=== PATIENT | male | born 2000 | race African-American/Black ===

== ENCOUNTER 2023-07-09 08:42 | Emergency (ER) | payer OTHER ==
[2023-07-09 09:01] VITALS: O2SAT 98
--- NOTE | 2023-07-09 09:32 | XRAY Report ---
PROCEDURE: Tib/Fib RT INDICATIONS: Rt leg pain TECHNIQUE: 2 views of the tibia and fibula were acquired. COMPARISON: None. FINDINGS: Bones: No fractures or dislocations. No suspicious bony lesions. Soft tissues: No suspicious soft tissue calcifications or masses. IMPRESSION: No visualized acute fracture or dislocation. However, occult injury cannot be excluded. Recommend yuliana rt interval imaging follow-up in 7-10 days as clinically indicated for additional evaluation. Reviewed by: Justine Vora MD on 07/09/2023 9:30 AM PDT Approved by: Justine Vora MD on 07/09/2023 9:30 AM PDT Station ID: [id number]
--- NOTE | 2023-07-09 11:48 | ED Physician Documentation ---
PD HPI LOWER EXT INJURY - Stated complaint Stated Complaint: RT LEG PX - Chief complaint Chief Complaint: Ext Problem - History obtained from History obtained from: Patient - History of Present Illness PD HPI LOW EXT INJURY LOCATION: Right, Calf Type of injury: No: Fall, Twist, Blunt / blow, Puncture wound - Additional information Additional information: 23-year-old male presents with right calf pain for the last 5 days. The pain is in the upper calf and behind the right knee. He denies any known injury but states that he noted the pain after participating in physical training and in football 5 days ago. After that he noticed the pain and it has been present since then. It is worse when he sits for prolonged period of time, he feels a throbbing discomfort and also some numbness in this area and also on the lateral side of the right thigh. He does not have any thigh pain however the pain is limited to the upper part of the right calf and behind the right knee. He denies any falls or trauma, no twisting, no new increase in exertion. He has not noted any swelling in the area, no erythema. He has not attempted any tr eatment to help with the discomfort. He denies any prolonged immobility, no recent surgeries, no history of DVT or PE though states he believes his sister has a history of a possible blood clot. Review of Systems Constitutional: reports: Reviewed and negative Cardiac: reports: Reviewed and negative Respiratory: reports: Reviewed and negative GI: reports: Reviewed and negative Skin: reports: Reviewed and negative Musculoskeletal: reports: Extremity pain. denies: Neck pain, Back pain, Joint pain, Extremity swelling, Joint swelling, Pain with weight bearing PD PAST MEDICAL HISTORY - Past Medical History Past Medical History: No - Past Surgical History Past Surgical History: No - Present Medications Home Medications: Ambulatory Orders Medication Instructions Recorded Confirmed No Known Home Medications 07/09/23 07/09/23 - Allergies Allergies/Adverse Reactions: Allergies Allergy/AdvReac Type Severity Reaction Status Date / Time No Known Drug Allergies Allergy Verified 07/09/23 08:51 - Social History Does the pt smoke?: No Smoking Status: Never smoker Does the pt drink ETOH?: No Does the pt have substance abuse?: No - Immunizations Immunizations are current?: Yes PD ED PE NORMAL - Vitals Vital signs reviewed: Yes - General General: Alert and oriented X 3, No acute distress, Well developed/nourished - HEENT HEENT: Atraumatic, Moist mucous membranes - Cardiac Cardiac: RRR, No murmur - Respiratory Respiratory: No respiratory distress, Clear bilaterally - Derm Derm: Normal color, Warm and dry, No rash - Extremities Extremities: No deformity, Other (Right upper calf tenderness to palpation without cords, pain is well with palpation of the popliteal space of the right leg, no other knee pain, normal flexion extension, normal sensation in the lower extremity, no swelling.) - Neuro Neuro: Alert and oriented X 3 Eye Opening: Spontaneous Motor: Obeys Commands Verbal: Oriented GCS Score: 15 Results - Vitals Vitals: Vital Signs - 24 hr 07/09/23 08:51 Temperature 36.5 C Heart Rate 72 Respiratory 18 Rate Blood Pressure 140/96 H O2 Saturation 98 Oxygen O2 Source Room air - Rads (name of study) No standard instances Relevant Findings:: Final report received PD Medical Decision Making - ED course Complexity details: reviewed results, re-evaluated patient, considered differential, d/w patient ED course: 23-year-old male presents with hide right upper calf pain as described in HPI. Arrival here, patient is well-appearing, nontoxic, he does have reproducible pain in the right upper calf, no palpable cords. He does not have risk factors for DVT but that remain in the differential as well as possible muscle strain, Gambino's cyst, less likely bony injury as he had no trauma. An x-ray was obtained prior to my evaluation and this was negative but I proceeded with a CT scan that showed incidental thrombophlebitis but no DVT. I discussed with patient that this should be treated supportively, with NSAIDs, light compression, can use moist heat or cool compress, and follow-up with his PCP within the next couple of weeks, they may review ultrasound to evaluate. Return precautions reviewed if increasing pain, calf swelling, calf redness, shortness of breath or other new concerns. Departure - Departure Disposition: 01 Home, Self Care Clinical Impression: Superficial thrombophlebitis Qualifiers: Superficial thrombophlebitis-Involved body area: lower extremity Laterality: right Qualified Code(s): I80.01 - Phlebitis and thrombophlebitis of superficial vessels of right lower extremity Condition: Good Instructions: ED Phlebitis Superficial Comments: You have a superficial phlebitis in the right calf. You will need to follow-up with your primary doctor within the next several days as this should be monitored with a repeat ultrasound in the next couple of weeks. In the meantime, you can use anti-inflammatory such as ibuprofen or naproxen, light compression with the Colin wrap and you can do activity as tolerated. Please schedule follow-up with your primary doctor as soon as available. Forms: PCP List
--- NOTE | 2023-07-09 13:19 | Ultrasound Report ---
PROCEDURE: Duplex Ext Veins Right INDICATIONS: right calf pain TECHNIQUE: Real-time imaging, as well as color and pulse Doppler interrogation, were performed of the lower extr emity deep veins from the inguinal ligament to the popliteal fossa. Attempted visualization of the ca lf veins was performed. COMPARISON: None. FINDINGS: The deep veins are normally compressible, and free of intraluminal thrombus. Color and pu lse Doppler demonstrate normal phasic intraluminal flow. There is normal augmentation response to di stal compression maneuver. Incidental note of superficial thrombophlebitis in the right calf 2.6 cm from the popliteal junction. IMPRESSION: No deep venous thrombosis of the visualized lower extremity. Incidental note of superfic ial thrombophlebitis. Reviewed by: Justine Vora MD on 07/09/2023 1:18 PM PDT Approved by: Justine Vora MD on 07/09/2023 1:18 PM PDT Station ID: [id number]
[2023-07-09 13:34] VITALS: BP 144/95
== END 2023-07-09 13:26 | disposition home or self-care (01) ==
LOC: ED 08:42
DX: I80.01 Phlebitis and thrombophlebitis of superficial vessels of right lower extremity (principal)
CPT/HCPCS: 99283; 99284